=== PATIENT | female | born 1970 | race African-American/Black ===

== ENCOUNTER 2018-06-04 00:06 | Inpatient (IN) ==
[2018-06-04 02:16] LABS: Calcium 8.9 mg/dL (8.5-10.1); Carbon Dioxide 29.9 meq/L (21.0-32.0); Potassium 3.8 meq/L (3.5-5.1)
[2018-06-04 02:20] LABS: Troponin I 0.03 ng/mL (0.02-0.05)
[2018-06-04] MEDS ORDERED: hydrALAZINE HCl Inj 20 MG/ML Vial IV.PUSH ONE (03:05)
--- NOTE | 2018-06-04 03:11 | ED ---
HPI General Chief complaint: Medical Clearance Stated complaint: Blood Pressure Time Seen by Provider: 06/04/18 00:49 Source: patient Mode of arrival: ambulatory Limitations: no limitations History of Present Illness HPI narrative: Is a 47-year-old woman who presents to the emergency department complaining of headache and elevated blood pressure. She reports a history of hypertension in the past. She felt well recently. Says over the past day or so she started getting more headache, neck pain, and feeling like her blood pressure is elevated. She took it at home and it was 200s over 100s. She takes lisinopril and carvedilol. She has been taking it regularly. She has not run out of any of her medications. She has had a stroke in the past. She reports one time they told her kidney function was a little bit off but she had lab work done just recently and was told by her doctor that it was all normal. No other complaints. Related Data Home Medications Medication Instructions Recorded Confirmed atorvastatin 20 mg PO DAILY 06/04/18 06/04/18 carvedilol [Coreg] 12.5 mg PO BID 06/04/18 06/04/18 lisinopril 20 mg PO DAILY 06/04/18 06/04/18 Allergies Allergy/AdvReac Type Severity Reaction Status Date / Time No Known Allergies Allergy Mild Uncoded 11/22/07 23:40 Review of Systems ROS: all other systems reviewed are negative [facility] Medical History Medical History Diabetes (Acute) HTN (hypertension) (Acute) History of hysterectomy (Acute) History of stroke (Acute) Hx of heart failure (Acute) Surgical History Surgical History Previous section (Acute) Social History Social History Second Hand Smoke Exposure: No Smoking Status: Never smoker How Often Do You Have a Drink Containing Alcohol: Never Recent Travel in [facility] [[email or web address]] within the Last 8 Weeks: No Recent Out of Country Travel within the Last 8 Weeks: No Immunization History Tetanus Immunization: <5 Years Tetanus Immunization Year if Known: 2016 Hx Influenza Vaccine This Season: No Exam Narrative Exam Narrative: GENERAL: Well-appearing 47-year-old woman, no acute distress. SKIN: Focused skin assessment warm/dry. HEAD: Atraumatic. Normocephalic. EYES: Pupils equal and round. No scleral icterus. No injection or drainage. ENT: No nasal bleeding or discharge. Mucous membranes pink and moist. NECK: Trachea midline. No JVD. CARDIOVASCULAR: Regular rate and rhythm. No murmur appreciated. RESPIRATORY: No accessory muscle use. Clear to auscultation. Breath sounds equal bilaterally. GASTROINTESTINAL: Abdomen soft, non-tender, nondistended. Hepatic and splenic margins not palpable. MUSCULOSKELETAL: No obvious deformities. No clubbing. No cyanosis. No edema. NEUROLOGICAL: Awake and alert. No obvious cranial nerve deficits. Motor grossly within normal limits. Normal speech. PSYCHIATRIC: Appropriate mood and affect; insight and judgment normal. Course Initial Documented Vital Signs Temperature 98.3 F 06/04/18 00:25 Pulse Rate 67 06/04/18 00:25 Respiratory Rate 16 06/04/18 00:25 Blood Pressure 239/116 H 06/04/18 00:25 Pulse Oximetry 97 06/04/18 00:25 Last Documented Vital Signs Temperature 98.3 F 06/04/18 00:25 Pulse Rate 54 L 06/04/18 02:55 Respiratory Rate 16 06/04/18 02:55 Blood Pressure 198/102 H 06/04/18 02:55 Pulse Oximetry 99 06/04/18 02:55 Medical Decision Making MDM Narrative Medical decision making narrative: Is a 47-year-old woman who presents to the emergency department with elevated blood pressure. She has headache and neck pain which happens when her blood pressure little bit elevated. Has never been so elevated that she had to come see a doctor like this before. She has had a stroke in the past. States her blood pressure normally runs in the 120s or so. She takes her medicine regularly. She was feeling fine before today. Etiology is unclear. Labs do show kidney injury. No old for comparison. Is presumed acute. Despite 2 doses of enalapril, her blood pressure remains elevated 200/100. We will give her a dose of hydralazine, hypertensive urgency. Medical Screen Exam Complete: Yes Emergency Medical Condition: Yes Lab Data Result diagrams: 06/04/18 01:15 Lab Results 06/04/18 Range/Units 01:15 Sodium 142 (136-145) meq/L Potassium 3.8 (3.5-5.1) meq/L Chloride 104 (98-107) meq/L Carbon Dioxide 29.9 (21.0-32.0) meq/L Anion Gap 8 (5-15) meq/L BUN 44 H (7-18) mg/dL Creatinine 2.84 H (0.50-1.00) mg/dL Estimated GFR 21 L (>89) mL/min Random Glucose 142 H (74-106) mg/dL Calcium 8.9 (8.5-10.1) mg/dL Troponin I 0.03 (0.02-0.05) ng/mL Discharge Plan Discharge Disposition Patient Disposition: 30 Still Patient Physicians Team ED Provider: John Lee Primary Care Provider: UNKNOWN, Rxs /Orders / Referrals /Forms Prescriptions: No Action carvedilol [Coreg] 6.25 mg Tablet 12.5 mg PO BID RF: 0 atorvastatin 10 mg Tablet 20 mg PO DAILY RF: 0 lisinopril 20 mg Tablet 20 mg PO DAILY RF: 0 Status ED Status: With Doctor
[2018-06-04 03:37] LABS: Baso % (Auto) 0.7 % (0.0-2.0); Eos # (Auto) 0.1 th/mm3 (0.0-0.4); Eos % (Auto) 2.1 % (0.0-4.0); Hematocrit 40.2 % (35.0-46.0); Hemoglobin 13.1 gm/dL (11.6-15.3); Lymph # (Auto) 2.9 th/mm3 (1.0-4.8); Lymph % (Auto) 44.6 % (9.0-44.0); Mean Corpuscular HGB Conc 32.7 % (32.0-36.0); Mean Corpuscular Hemoglobin 28.9 pg (27.0-34.0); Mean Corpuscular Volume 88.5 fL (80.0-100.0); Mean Platelet Volume 11.9 fL (7.0-11.0); Mono # (Auto) 0.4 th/mm3 (0.0-0.9); Mono % (Auto) 6.7 % (0.0-8.0); Neut % (Auto) 45.9 % (16.0-70.0); Platelet Count 139 th/mm3 (150-450); Red Blood Count 4.54 mil/mm3 (4.00-5.30); White Blood Count 6.6 th/mm3 (4.0-11.0)
[2018-06-04] MEDS ORDERED: hydrALAZINE 25 MG Tablet PO ONE (03:52)
[2018-06-04] MEDS ORDERED: Bisacodyl 10 MG Supp RECTAL PRN (03:53)
--- NOTE | 2018-06-04 04:06 | P.HP ---
History of Present Illness Service: [facility] Primary Care Physician: UNKNOWN History of Present Illness: 47-year-old female with a past medical history significant for previous CVA, hypertension, hyperlipidemia and CHF presents to the emergency department for evaluation of elevated blood pressure. The patient reports she was taking her blood pressure at home when she noticed it was elevated. Her highest reading was 218/104. She endorses associated headache and blurry vision. She denies any chest pain or shortness of breath. She has residual right-sided weakness from her previous CVA that is at baseline. No abdominal pain. No nausea/ vomiting/diarrhea. No fever/chills. Review of Systems All other systems reviewed negative except as stated in HPI [facility] - History History Provided By: Patient - Medical History Medical History: Medical History (Last Reviewed 06/04/18 @ 03:10 by John Lee MD) Diabetes HTN (hypertension) History of hysterectomy History of stroke Hx of heart failure - Surgical History Surgical History: Surgical History (Last Reviewed 06/04/18 @ 03:10 by John Lee MD) Previous section - Family History Family History: Family History (Last Updated 06/04/18 @ 03:57 by Sheila Valerio MD) Other Coronary artery disease Diabetes mellitus - Tobacco History Second Hand Smoke Exposure: No Smoking Status: Never smoker - Alcohol History How Often Do You Have a Drink Containing Alcohol: Never - Travel History Recent Travel in the [place] Within the Last 8 Weeks: No Recent Travel Out of the Country Within the Last 8 Weeks: No - Immunization History Tetanus Immunization: <5 Years Tetanus Immunization Year if Known: 2016 Hx Influenza Vaccine This Season: No Medications and Allergies Allergies Allergy/AdvReac Type Severity Reaction Status Date / Time No Known Allergies Allergy Mild Uncoded 11/22/07 23:40 Home Medications Medication Instructions Recorded Confirmed Type atorvastatin 20 mg PO DAILY 06/04/18 06/04/18 History carvedilol [Coreg] 12.5 mg PO BID 06/04/18 06/04/18 History lisinopril 20 mg PO DAILY 06/04/18 06/04/18 History Exam Vital signs: Vital Signs 06/04/18 00:25 06/04/18 00:43 06/04/18 02:12 Temperature 98.3 F Pulse Rate 67 68 56 L Respiratory Rate 16 14 16 Blood Pressure 239/116 H 244/121 H 211/113 H Pulse Oximetry 97 97 98 06/04/18 02:55 Temperature Pulse Rate 54 L Respiratory Rate 16 Blood Pressure 198/102 H Pulse Oximetry 99 Intake & Output 06/03/18 06/03/18 06/04/18 06:59 18:59 06:59 Weight 63.503 kg Narrative: Gen.: No acute distress Head: Normocephalic. Atraumatic. EENT: Pupils equal round and reactive to light. Nose without drainage. Airway intact. Throat without injection. Cardiovascular: Regular rate and rhythm. No murmurs, rubs or gallops. Respiratory: Lungs clear to auscultation bilaterally. No wheezes or rhonchi. Abdomen: Soft, nontender, nondistended. No peritoneal signs. Musculoskeletal: No gross deformities. No edema. Skin: No obvious rashes or erythema. Neuro: Cranial nerves II through XII grossly intact. Residual right-sided weakness that is at baseline. Results - Labs CBC & Chem 7: 06/04/18 01:15 06/04/18 01:15 Labs: Laboratory Results - last 24 hr 06/04/18 06/04/18 01:15 01:15 WBC 6.6 RBC 4.54 Hgb 13.1 Hct 40.2 MCV 88.5 MCH 28.9 MCHC 32.7 RDW 15.0 Plt Count 139 L MPV 11.9 H Neut % (Auto) 45.9 Lymph % (Auto) 44.6 H [place] % (Auto) 6.7 Eos % (Auto) 2.1 Baso % (Auto) 0.7 Neut # (Auto) 3.0 Lymph # (Auto) 2.9 [place] # (Auto) 0.4 Eos # (Auto) 0.1 Baso # (Auto) 0.0 WBC Differential . Differential Comment Auto diff final Sodium 142 Potassium 3.8 Chloride 104 Carbon Dioxide 29.9 Anion Gap 8 BUN 44 H Creatinine 2.84 H Estimated GFR 21 L Random Glucose 142 H Calcium 8.9 Troponin I 0.03 Caprini VTE Risk Assessment Caprini VTE Risk Assessment: Moderate/High Risk (score >= 2) Caprini Risk Assessment Model: Point Value = 1 Point Value = 2 Point Value = 3 Point Value = 5 Age 41-60 Minor surgery BMI > 25 kg/m2 Swollen legs Varicose veins or History of unexplained or recurrent spontaneous Oral contraceptives or hormone replacement Sepsis (< 1 month) Serious lung disease, including pneumonia (< 1 month) Abnormal pulmonary function Acute myocardial infarction Congestive heart failure (< 1 month) History of inflammatory bowel disease Medical patient at bed rest Age 61-74 Arthroscopic surgery Major open surgery (> 45 min) Laparoscopic surgery (> 45 min) Malignancy Confined to bed (> 72 hours) Immobilizing plaster cast Central venous access Age >= 75 History of VTE Family history of VTE Factor V Leiden Prothrombin [id number] Lupus anticoagulant Anticardiolipin antibodies Elevated serum homocysteine Heparin-induced thrombocytopenia Other congenital or acquired thrombophilia Stroke (< 1 month) Elective arthroplasty Hip, pelvis, or leg fracture Acute spinal cord injury (< 1 month) Prophylaxis Regimen: Total Risk Factor Score Risk Level Prophylaxis Regimen 0-1 Low Early ambulation 2 Moderate Order ONE of the following: *Sequential Compression Device (SCD) *Heparin 5000 units SQ BID 3-4 Higher Order ONE of the following medications: *Heparin 5000 units SQ TID *Enoxaparin/Lovenox 40 mg SQ daily (WT < 150 kg, CrCl > 30 mL/min) *Enoxaparin/Lovenox 30 mg SQ daily (WT < 150 kg, CrCl > 10-29 mL/min) *Enoxaparin/Lovenox 30 mg SQ BID (WT < 150 kg, CrCl > 30 mL/min) AND/OR *Sequential Compression Device (SCD) 5 or more Highest Order ONE of the following medications: *Heparin 5000 units SQ TID (Preferred with Epidurals) *Enoxaparin/Lovenox 40 mg SQ daily (WT < 150 kg, CrCl > 30 mL/min) *Enoxaparin/Lovenox 30 mg SQ daily (WT < 150 kg, CrCl > 10-29 mL/min) *Enoxaparin/Lovenox 30 mg SQ BID (WT < 150 kg, CrCl > 30 mL/min) AND *Sequential Compression Device (SCD) Assessment and Plan - Plan Assessment/plan: 1. Hypertensive crisis Patient's blood pressure 239/116 on arrival to the emergency department Bradycardic in the 50s Status post enalapril 2 in the emergency department Hydralazine Holding home medications secondary to bradycardia 2. Acute kidney injury BUN/creatinine 44/2.84, baseline unknown IV fluid hydration Monitor renal function 3. Bradycardia Telemetry Holding home antihypertensives 4. History of CVA Patient at baseline Monitor 5. Hyperlipidemia Continue home statin 6. CHF Gentle IV fluid hydration Monitor for volume overload FEN Heart healthy diet Electrolytes: Monitor and replete as needed NS at 70 cc/hour
[2018-06-04] MEDS: Sod Chloride 0.9% Inj 1,000 ML IV.CONT SCH ×3 (06:27→18:43)
[2018-06-04] MEDS: Heparin - SQ 10,000 UNITS/ML Vial SQ SCH ×2 (06:28→18:41)
[2018-06-04] MEDS: Senna/Docusate Sodium 8.6/50 MG Tablet PO SCH ×2 (08:26→21:22)
[2018-06-04] MEDS: Carvedilol 6.25 MG Tablet PO SCH ×2 (08:26→21:22)
[2018-06-04] MEDS: Lisinopril 20 MG Tablet PO SCH (08:40)
[2018-06-04] MEDS ORDERED: hydrALAZINE 10 MG Tablet PO SCH (09:00)
--- NOTE | 2018-06-04 09:45 | ECG ---
Date Performed: 06/04/2018 Time Performed: 00:37:26 PTAGE: 47 years EKG: SINUS BRADYCARDIA WITH OCCASIONAL VENTRICULAR PREMATURE COMPLEXES POSSIBLE LEFT ATRIAL ENLA RGEMENT MARKED LEFT AXIS DEVIATION LEFT VENTRICULAR HYPERTROPHY AND ST-T CHANGE ABNORMAL ECG PREVIOUS TRACING : 11/24/2007 05.30 DOCTOR: John Holt Interpretating Date/Time 06/04/2018 09:43:53
[2018-06-04] MEDS ORDERED: Dextrose 50% in Water 50 ML Vial IV.PUSH PRN (11:10)
[2018-06-04] MEDS: Insulin NovoLOG Aspart Correctional Sugar Inj SQ SCH ×3 (12:22→21:22)
[2018-06-04 12:52] LABS: Carbon Dioxide 25.8 meq/L (21.0-32.0); Potassium 3.7 meq/L (3.5-5.1)
[2018-06-04] MEDS: hydrALAZINE 10 MG Tablet PO SCH ×2 (12:55→18:41)
--- NOTE | 2018-06-04 13:38 | P.PN ---
Subjective Interval history: Follow up for elevated BP: examined in the ED, bp still elevated 180s. C/O mild headache. History of CVA in March, was in rehab for 2 months. Indicates that blood pressure has been relatively well controlled until yesterday. No longer takes oral hypoglycemics as she controls her diabetes with diet. Denies any chest pain, shortness of breath. Does have residual weakness to the right hand and leg from previous stroke. Uses a cane for ambulation. Physical Exam Vital signs: Vital Signs 06/04/18 00:25 06/04/18 00:43 06/04/18 02:12 Temperature 98.3 F Pulse Rate 67 68 56 L Respiratory Rate 16 14 16 Blood Pressure 239/116 H 244/121 H 211/113 H Pulse Oximetry 97 97 98 06/04/18 02:55 06/04/18 05:00 06/04/18 06:00 Temperature Pulse Rate 54 L 57 L 60 Respiratory Rate 16 15 16 Blood Pressure 198/102 H 217/117 H 201/91 H Pulse Oximetry 99 99 06/04/18 07:17 06/04/18 08:20 06/04/18 09:30 Temperature Pulse Rate 67 74 71 Respiratory Rate 12 16 16 Blood Pressure 180/99 H 205/103 H 189/96 H Pulse Oximetry 100 06/04/18 11:26 06/04/18 12:00 Temperature 97.7 F Pulse Rate 67 64 Respiratory Rate 16 18 Blood Pressure 183/116 H 202/111 H Pulse Oximetry 99 Intake & Output 06/03/18 06/04/18 06/04/18 18:59 06:59 18:59 Intake Total 1000 / 1000 Balance 1000 / 1000 Weight 63.503 kg Intake: IV 1000 / 1000 NS Inj 1,000 ML @ 70 mls/hr IV. 1000 / 1000 CONT .[id number] [facility] Rx#:[id number] Narrative: GENERAL: Well-nourished, well-developed patient in no apparent distress. SKIN: Warm and dry. HEAD: Atraumatic. Normocephalic. EYES: Pupils equal and round. No scleral icterus. No injection or drainage. ENT: No nasal bleeding or discharge. Mucous membranes pink and moist. NECK: Trachea midline. No JVD. CARDIOVASCULAR: Regular rate and rhythm. RESPIRATORY: No accessory muscle use. Clear to auscultation. Breath sounds equal bilaterally. GASTROINTESTINAL: Abdomen soft, non-tender, nondistended. Hepatic and splenic margins not palpable. MUSCULOSKELETAL: Extremities without clubbing, cyanosis, or edema. No obvious deformities. NEUROLOGICAL: Awake and alert. Right hand with slight contracture from previous CVA, strength 3-4/5. RLE 4/5. PSYCHIATRIC: Appropriate mood and affect; insight and judgment normal. Results - Labs CBC & Chem 7: 06/04/18 01:15 06/04/18 11:30 Laboratory Results - last 24 hr 06/04/18 06/04/18 06/04/18 01:15 01:15 11:30 WBC 6.6 RBC 4.54 Hgb 13.1 Hct 40.2 MCV 88.5 MCH 28.9 MCHC 32.7 RDW 15.0 Plt Count 139 L MPV 11.9 H Neut % (Auto) 45.9 Lymph % (Auto) 44.6 H [place] % (Auto) 6.7 Eos % (Auto) 2.1 Baso % (Auto) 0.7 Neut # (Auto) 3.0 Lymph # (Auto) 2.9 [place] # (Auto) 0.4 Eos # (Auto) 0.1 Baso # (Auto) 0.0 WBC Differential . Differential Comment Auto diff final Sodium 142 143 Potassium 3.8 3.7 Chloride 104 108 H Carbon Dioxide 29.9 25.8 Anion Gap 8 9 BUN 44 H 40 H Creatinine 2.84 H 2.52 H Estimated GFR 21 L 25 L POC Glucose Random Glucose 142 H 143 H Calcium 8.9 9.0 Troponin I 0.03 06/04/18 12:21 WBC RBC Hgb Hct MCV MCH MCHC RDW Plt Count MPV Neut % (Auto) Lymph % (Auto) [place] % (Auto) Eos % (Auto) Baso % (Auto) Neut # (Auto) Lymph # (Auto) [place] # (Auto) Eos # (Auto) Baso # (Auto) WBC Differential Differential Comment Sodium Potassium Chloride Carbon Dioxide Anion Gap BUN Creatinine Estimated GFR POC Glucose 138 H Random Glucose Calcium Troponin I Assessment and Plan - Assessment (1) Hypertensive crisis Code(s): I16.9 - Hypertensive crisis, unspecified Status: Acute (2) Diabetes 1.5, managed as type 2 Code(s): E10.9 - Type 1 diabetes mellitus without complications Status: Chronic (3) History of CVA with residual deficit Code(s): I69.30 - Unspecified sequelae of cerebral infarction Status: Chronic - Plan Assessment/plan: 47-year-old female with a past medical history significant for previous CVA, hypertension, hyperlipidemia and CHF presents to the emergency department for evaluation of elevated blood pressure. The patient reports she was taking her blood pressure at home when she noticed it was elevated. Her highest reading was 218/104. She endorses associated headache and blurry vision. Hypertensive crisis Patient's blood pressure 239/116 on arrival to the emergency department Bradycardic in the 50s Status post enalapril 2 in the emergency department -inc Hydralazine to 20 mg PO TID -Resume Lisinopril at 10 mg po daily, has renal insuf. unknown baseline -Resume Coreg, HR better 70s -Continue with Vasotec PRN Acute kidney injury BUN/creatinine 44/2.84, baseline unknown -IV fluid hydration -Monitor renal function -Avoid nephrotoxic agents Repeat BMP today Bradycardia-improved, heart rate 70s. -Continuous cardiac telemetry telemetry -Resume Coreg with hold parameters History of CVA with residual right-sided weakness Patient at baseline -Monitor and control blood pressure Continue with statin Hyperlipidemia -Continue home statin Chronic CHF -Gentle IV fluid hydration -Monitor for volume overload Diet-controlled diabetes Accu-Cheks before meals and at bedtime with insulin therapy as needed Heparin for DVT prophylaxis Discussed with RN, patient. Repeat labs in the morning
[2018-06-05] MEDS: Heparin - SQ 10,000 UNITS/ML Vial SQ SCH ×2 (06:23→18:09)
[2018-06-05 08:07] LABS: Baso % (Auto) 0.6 % (0.0-2.0); Eos # (Auto) 0.1 th/mm3 (0.0-0.4); Eos % (Auto) 2.1 % (0.0-4.0); Hematocrit 38.7 % (35.0-46.0); Hemoglobin 12.7 gm/dL (11.6-15.3); Lymph # (Auto) 2.6 th/mm3 (1.0-4.8); Lymph % (Auto) 41.1 % (9.0-44.0); Mean Corpuscular HGB Conc 32.8 % (32.0-36.0); Mean Corpuscular Hemoglobin 28.9 pg (27.0-34.0); Mean Platelet Volume 12.1 fL (7.0-11.0); Mono # (Auto) 0.4 th/mm3 (0.0-0.9); Mono % (Auto) 6.6 % (0.0-8.0); Neut # (Auto) 3.1 th/mm3 (1.8-7.7); Neut % (Auto) 49.6 % (16.0-70.0); Platelet Count 140 th/mm3 (150-450); Red Cell Distribution Width 15.1 % (11.6-17.2); White Blood Count 6.2 th/mm3 (4.0-11.0)
[2018-06-05 08:31] LABS: Calcium 9.1 mg/dL (8.5-10.1); Carbon Dioxide 22.8 meq/L (21.0-32.0); Potassium 3.9 meq/L (3.5-5.1)
[2018-06-05] MEDS: Insulin NovoLOG Aspart Correctional Sugar Inj SQ SCH ×4 (09:00→21:36)
--- NOTE | 2018-06-05 09:24 | P.PNIM ---
Subjective Interval history: f/u; hypertensive urgency in no acute distress. denies chest pain, sob or dizziness. Physical Exam Vital signs: Vital Signs 06/04/18 09:30 06/04/18 11:26 06/04/18 12:00 Temperature 97.7 F Pulse Rate 71 67 64 Respiratory Rate 16 16 18 Blood Pressure 189/96 H 183/116 H 202/111 H Pulse Oximetry 99 06/04/18 14:05 06/04/18 16:00 06/04/18 17:44 Temperature 97.7 F Pulse Rate 74 67 Respiratory Rate 18 Blood Pressure 164/88 H 187/106 H Pulse Oximetry 99 06/04/18 18:40 06/04/18 20:00 06/04/18 22:00 Temperature 98.1 F Pulse Rate 67 96 H Respiratory Rate 18 Blood Pressure 162/124 H 188/105 H 242/122 H Pulse Oximetry 98 97 06/05/18 01:19 06/05/18 02:36 06/05/18 04:00 Temperature 97.8 F Pulse Rate 90 83 78 Respiratory Rate 18 Blood Pressure 177/95 H 157/89 H 143/85 H Pulse Oximetry 97 98 98 Intake & Output 06/04/18 06/05/18 06/05/18 18:59 06:59 18:59 Intake Total 1000 / 1000 Balance 1000 / 1000 Weight 66.7 kg Intake: IV 1000 / 1000 NS Inj 1,000 ML @ 70 mls/hr IV. 1000 / 1000 CONT .[id number] [facility] Rx#:[id number] Other: # Voids 2 # Bowel Movements 1 - Constitutional no acute distress - Routine Respiratory Exam Present: CTA bilaterally - Routine Cardiovascular Exam Present: RRR - Routine Abdominal Exam Present: soft - Routine Extremities Exam Comments: no pedal edema. - Routine Neurological Exam Present: alert, oriented X3 Results - Labs CBC & Chem 7: 06/05/18 06:31 06/05/18 06:31 Laboratory Results - last 24 hr 06/04/18 06/04/18 06/04/18 11:30 12:21 16:48 WBC RBC Hgb Hct MCV MCH MCHC RDW Plt Count MPV Neut % (Auto) Lymph % (Auto) [place] % (Auto) Eos % (Auto) Baso % (Auto) Neut # (Auto) Lymph # (Auto) [place] # (Auto) Eos # (Auto) Baso # (Auto) WBC Differential Differential Comment Sodium 143 Potassium 3.7 Chloride 108 H Carbon Dioxide 25.8 Anion Gap 9 BUN 40 H Creatinine 2.52 H Estimated GFR 25 L POC Glucose 138 H 133 H Random Glucose 143 H Calcium 9.0 06/04/18 06/05/18 06/05/18 20:53 06:31 06:31 WBC 6.2 RBC 4.40 Hgb 12.7 Hct 38.7 MCV 88.0 MCH 28.9 MCHC 32.8 RDW 15.1 Plt Count 140 L MPV 12.1 H Neut % (Auto) 49.6 Lymph % (Auto) 41.1 [place] % (Auto) 6.6 Eos % (Auto) 2.1 Baso % (Auto) 0.6 Neut # (Auto) 3.1 Lymph # (Auto) 2.6 [place] # (Auto) 0.4 Eos # (Auto) 0.1 Baso # (Auto) 0.0 WBC Differential . Differential Comment Auto diff final Sodium 143 Potassium 3.9 Chloride 110 H Carbon Dioxide 22.8 Anion Gap 10 BUN 36 H Creatinine 2.59 H Estimated GFR 24 L POC Glucose 122 H Random Glucose 118 H Calcium 9.1 Assessment and Plan - Assessment (1) Hypertensive crisis Code(s): I16.9 - Hypertensive crisis, unspecified Status: Acute (2) Diabetes 1.5, managed as type 2 Code(s): E10.9 - Type 1 diabetes mellitus without complications Status: Chronic (3) History of CVA with residual deficit Code(s): I69.30 - Unspecified sequelae of cerebral infarction Status: Chronic - Plan Hypertensive crisis Patient's blood pressure 239/116 on arrival to the emergency department Bradycardic in the 50s Status post enalapril 2 in the emergency department -continue Hydralazine to 20 mg PO TID -Resumed Lisinopril at 10 mg po daily, has renal insuf. unknown baseline -Resumed Coreg, HR better 70s -Continue with Vasotec PRN renal insufficiency with unknown duration BUN/creatinine 44/2.84, baseline unknown -IV fluid hydration -Monitor renal function -Avoid nephrotoxic agents Bradycardia-improved, heart rate 70s. -Continuous cardiac telemetry telemetry -Resumed Coreg with hold parameters History of CVA with residual right-sided weakness Patient at baseline -Monitor and control blood pressure Continue with statin Hyperlipidemia -Continue home statin Chronic CHF -Gentle IV fluid hydration -Monitor for volume overload Diet-controlled diabetes Accu-Cheks before meals and at bedtime with insulin therapy as needed Heparin for DVT prophylaxis Discharge Planning: dc home tomorrow if BP stable.
[2018-06-05] MEDS: Carvedilol 6.25 MG Tablet PO SCH ×2 (09:53→21:24)
[2018-06-05] MEDS: Senna/Docusate Sodium 8.6/50 MG Tablet PO SCH ×2 (09:53→21:37)
[2018-06-05] MEDS: hydrALAZINE 10 MG Tablet PO SCH ×3 (09:53→18:09)
[2018-06-05] MEDS: Lisinopril 10 MG Tablet PO SCH (09:56)
[2018-06-05] MEDS: Sod Chloride 0.9% Inj 1,000 ML IV.CONT SCH (09:57)
[2018-06-05] MEDS: Lisinopril 20 MG Tablet PO SCH (18:05)
[2018-06-05] MEDS: Acetaminophen 325 MG Tablet PO PRN (21:24)
[2018-06-06] MEDS: Sod Chloride 0.9% Inj 1,000 ML IV.CONT SCH ×2 (02:46→23:00)
[2018-06-06] MEDS: Heparin - SQ 10,000 UNITS/ML Vial SQ SCH ×2 (05:23→18:31)
[2018-06-06 07:19] LABS: Calcium 8.9 mg/dL (8.5-10.1); Carbon Dioxide 23.7 meq/L (21.0-32.0)
[2018-06-06] MEDS: Insulin NovoLOG Aspart Correctional Sugar Inj SQ SCH ×4 (08:53→21:16)
[2018-06-06] MEDS: Senna/Docusate Sodium 8.6/50 MG Tablet PO SCH ×2 (08:55→21:16)
[2018-06-06] MEDS: Carvedilol 6.25 MG Tablet PO SCH ×2 (08:55→21:15)
[2018-06-06] MEDS: Lisinopril 20 MG Tablet PO SCH (08:55)
[2018-06-06] MEDS: hydrALAZINE 10 MG Tablet PO SCH ×3 (08:55→18:29)
[2018-06-06] MEDS: Lisinopril 10 MG Tablet PO SCH (08:55)
--- NOTE | 2018-06-06 09:00 | P.PNIM ---
Subjective Interval history: f/u; hypertensive urgency in no acute distress. denies chest pain, sob or dizziness. BP trend noted. d/w the RN. Physical Exam Vital signs: Vital Signs 06/05/18 12:00 06/05/18 16:00 06/05/18 20:00 Temperature 97.7 F 97.5 F L 97.9 F Pulse Rate 68 71 72 Respiratory Rate 20 20 20 Blood Pressure 122/69 138/74 157/81 H Pulse Oximetry 98 98 98 06/06/18 00:00 06/06/18 04:00 Temperature 97.9 F 97.9 F Pulse Rate 65 71 Respiratory Rate 20 20 Blood Pressure 162/86 H 153/83 H Pulse Oximetry 98 96 Intake & Output 06/05/18 06/06/18 06/06/18 18:59 06:59 18:59 Intake Total 1000 / 1000 Balance 1000 / 1000 Intake: IV 1000 / 1000 NS Inj 1,000 ML @ 30 mls/hr IV. 1000 / 1000 CONT .Q24H [facility] Rx#:[id number] Other: Date of Last Bowel Movement 06/04/18 - Constitutional no acute distress - Routine Respiratory Exam Present: CTA bilaterally - Routine Cardiovascular Exam Present: RRR - Routine Abdominal Exam Present: soft - Routine Extremities Exam Comments: no pedal edema. - Routine Neurological Exam Present: alert, oriented X3 Results - Labs CBC & Chem 7: 06/05/18 06:31 06/06/18 06:34 Laboratory Results - last 24 hr 06/05/18 06/05/18 06/05/18 09:28 13:10 18:11 Sodium Potassium Chloride Carbon Dioxide Anion Gap BUN Creatinine Estimated GFR POC Glucose 131 H 121 H 88 Random Glucose Calcium 06/05/18 06/06/18 06/06/18 21:29 06:34 08:06 Sodium 142 Potassium 4.0 Chloride 111 H Carbon Dioxide 23.7 Anion Gap 7 BUN 42 H Creatinine 2.59 H Estimated GFR 24 L POC Glucose 130 H 116 H Random Glucose 105 Calcium 8.9 Assessment and Plan - Assessment (1) Hypertensive crisis Code(s): I16.9 - Hypertensive crisis, unspecified Status: Acute (2) Diabetes 1.5, managed as type 2 Code(s): E10.9 - Type 1 diabetes mellitus without complications Status: Chronic (3) History of CVA with residual deficit Code(s): I69.30 - Unspecified sequelae of cerebral infarction Status: Chronic - Plan Hypertensive crisis Patient's blood pressure 239/116 on arrival to the emergency department Bradycardic in the 50s Status post enalapril 2 in the emergency department -continue Hydralazine to 20 mg PO TID -Resumed Lisinopril at 20 mg po daily, has renal insuf. unknown baseline -Resumed Coreg, HR better 70s -Continue with Vasotec PRN renal insufficiency with unknown duration BUN/creatinine 44/2.84, baseline unknown -renal function stable -f/u as outpatient. Bradycardia-improved, heart rate 70s. -Continuous cardiac telemetry telemetry -Resumed Coreg with hold parameters History of CVA with residual right-sided weakness Patient at baseline -Monitor and control blood pressure Continue with statin Hyperlipidemia -Continue home statin Chronic CHF -Gentle IV fluid hydration -Monitor for volume overload Diet-controlled diabetes Accu-Cheks before meals and at bedtime with insulin therapy as needed Heparin for DVT prophylaxis Discharge Planning: dc home this afternoon if BP stable. advised to monitor her BP at home and have a close f/u with her pcp. see med list. d/w the patient and RN.
--- NOTE | 2018-06-06 09:03 | P.DS ---
Date of admission: 06/04/18 03:53 Primary care physician: UNKNOWN Brief History from admission: 47-year-old female with a past medical history significant for previous CVA, hypertension, hyperlipidemia and CHF presents to the emergency department for evaluation of elevated blood pressure. The patient reports she was taking her blood pressure at home when she noticed it was elevated. Her highest reading was 218/104. She endorses associated headache and blurry vision. She denies any chest pain or shortness of breath. She has residual right-sided weakness from her previous CVA that is at baseline. No abdominal pain. No nausea/ vomiting/diarrhea. No fever/chills. DS: Diagnosis - Discharge Diagnosis (1) Hypertensive crisis Status: Acute (2) Diabetes 1.5, managed as type 2 Status: Chronic (3) History of CVA with residual deficit Status: Chronic DS: Medications - Discharge Medications Prescriptions: hydralazine 20 mg PO TID 30 Days #180 tab DS: Summary Hospital Course: Hypertensive crisis Patient's blood pressure 239/116 on arrival to the emergency department Bradycardic in the 50s Status post enalapril 2 in the emergency department -continue Hydralazine to 20 mg PO TID -Resumed Lisinopril at 20 mg po daily, has renal insuf. unknown baseline -Resumed Coreg, HR better 70s -Continue with Vasotec PRN renal insufficiency with unknown duration BUN/creatinine 44/2.84, baseline unknown -renal function stable -f/u as outpatient. Bradycardia-improved, heart rate 70s. -Continuous cardiac telemetry telemetry -Resumed Coreg with hold parameters History of CVA with residual right-sided weakness Patient at baseline -Monitor and control blood pressure Continue with statin Hyperlipidemia -Continue home statin Chronic CHF -Gentle IV fluid hydration -Monitor for volume overload Diet-controlled diabetes Accu-Cheks before meals and at bedtime with insulin therapy as needed - Time Spent with Patient Total time spent providing and/or coordinating discharge services: Less than 30 minutes - Quality: VTE Deep Vein Thrombosis/Pulmonary Embolism Present on Admission: No Exam Vital signs: Vital Signs 06/05/18 12:00 06/05/18 16:00 06/05/18 20:00 Temperature 97.7 F 97.5 F L 97.9 F Pulse Rate 68 71 72 Respiratory Rate 20 20 20 Blood Pressure 122/69 138/74 157/81 H Pulse Oximetry 98 98 98 09/07/18 00:00 06/06/18 04:00 Temperature 97.9 F 97.9 F Pulse Rate 65 71 Respiratory Rate 20 20 Blood Pressure 162/86 H 153/83 H Pulse Oximetry 98 96 Intake & Output 06/05/18 06/06/18 06/06/18 18:59 06:59 18:59 Intake Total 1000 / 1000 Balance 1000 / 1000 Intake: IV 1000 / 1000 NS Inj 1,000 ML @ 30 mls/hr IV. 1000 / 1000 CONT .[facility] Rx#:[id number] Other: Date of Last Bowel Movement 06/04/18 Results Procedures completed during hospitalization: none. Labs on day of discharge: Labs from last 24 hours 06/06/18 06/06/18 06/05/18 08:06 06:34 21:29 Sodium 142 Potassium 4.0 Chloride 111 H Carbon Dioxide 23.7 Anion Gap 7 BUN 42 H Creatinine 2.59 H Estimated GFR 24 L POC Glucose 116 H 130 H Random Glucose 105 Calcium 8.9 06/05/18 06/05/18 06/05/18 18:11 13:10 09:28 Sodium Potassium Chloride Carbon Dioxide Anion Gap BUN Creatinine Estimated GFR POC Glucose 88 121 H 131 H Random Glucose Calcium Discharge Plan - Discharge Order Discharge Orders: Discharge Order (Routine); Ordered 06/06/18 Ordered By: Bonilla Schroeder - Physicians Team Primary Care Provider: UNKNOWN, Attending Provider: Bonilla Schroeder Other Providers: [employer]
[2018-06-07] MEDS: Heparin - SQ 10,000 UNITS/ML Vial SQ SCH (05:42)
[2018-06-07] MEDS: hydrALAZINE 10 MG Tablet PO SCH ×2 (09:19→12:29)
[2018-06-07] MEDS: Lisinopril 20 MG Tablet PO SCH (09:19)
[2018-06-07] MEDS: Senna/Docusate Sodium 8.6/50 MG Tablet PO SCH (09:19)
[2018-06-07] MEDS: Lisinopril 10 MG Tablet PO SCH ×2 (09:19→11:43)
[2018-06-07] MEDS: Carvedilol 6.25 MG Tablet PO SCH (09:20)
[2018-06-07] MEDS ORDERED: Lisinopril 20 MG Tablet PO SCH ×2 (09:56→09:59)
[2018-06-07] MEDS ORDERED: hydrALAZINE 25 MG Tablet PO ONE (09:59)
--- NOTE | 2018-06-07 10:00 | P.PNIM ---
Subjective Interval history: f/u; uncontrolled hypertension in no acute distress. no chest pain, sob, dizziness or headache. BP trend noted. Physical Exam Vital signs: Vital Signs 06/06/18 11:57 06/06/18 15:57 06/06/18 18:04 Temperature 97.6 F 98.1 F Pulse Rate 63 69 Respiratory Rate 20 20 Blood Pressure 155/89 H 185/96 H 156/78 H Pulse Oximetry 99 97 06/06/18 20:00 06/06/18 23:46 06/07/18 00:04 Temperature 97.6 F 98.3 F Pulse Rate 77 72 Respiratory Rate 18 14 Blood Pressure 172/90 H 180/98 H 180/98 H Pulse Oximetry 97 99 06/07/18 01:46 06/07/18 04:00 06/07/18 08:00 Temperature 98.2 F 97.7 F Pulse Rate 74 60 Respiratory Rate 16 18 Blood Pressure 150/98 H 160/98 H Pulse Oximetry 97 99 Intake & Output 06/06/18 06/07/18 06/07/18 18:59 06:59 18:59 Intake Total 480 / 480 1441 / 1441 Balance 480 / 480 1441 / 1441 Weight 66 kg Intake: Oral 480 / 480 1441 / 1441 Other: # Voids 3 2 - Constitutional no acute distress - Routine Respiratory Exam Present: CTA bilaterally - Routine Cardiovascular Exam Present: RRR - Routine Abdominal Exam Present: soft - Routine Extremities Exam Comments: no pedal edema. - Routine Neurological Exam Present: alert, oriented X3 Results - Labs CBC & Chem 7: 06/05/18 06:31 06/06/18 06:34 Laboratory Results - last 24 hr 06/06/18 06/06/18 06/06/18 12:53 16:34 20:09 POC Glucose 116 H 106 191 H 06/07/18 07:49 POC Glucose 128 H - Procedures none. Assessment and Plan - Assessment (1) Hypertensive crisis Code(s): I16.9 - Hypertensive crisis, unspecified Status: Acute (2) Diabetes 1.5, managed as type 2 Code(s): E10.9 - Type 1 diabetes mellitus without complications Status: Chronic (3) History of CVA with residual deficit Code(s): I69.30 - Unspecified sequelae of cerebral infarction Status: Chronic - Plan Hypertensive crisis Patient's blood pressure 239/116 on arrival to the emergency department Bradycardic in the 50s Status post enalapril 2 in the emergency department -continue Hydralazine ; increase to 50 mg tid -continue lisinopril 20 mg po daily. -Resumed Coreg, HR better 70s -Continue with Vasotec PRN renal insufficiency with unknown duration BUN/creatinine 44/2.84, baseline unknown -renal function stable -f/u as outpatient. Bradycardia-improved, heart rate 70s. -Continuous cardiac telemetry telemetry -Resumed Coreg with hold parameters History of CVA with residual right-sided weakness Patient at baseline -Monitor and control blood pressure Continue with statin Hyperlipidemia -Continue home statin Chronic CHF -Gentle IV fluid hydration -Monitor for volume overload Diet-controlled diabetes Accu-Cheks before meals and at bedtime with insulin therapy as needed Heparin for DVT prophylaxis Discharge Planning: dc home this afternoon if BP stable. advised to monitor her BP at home and have a close f/u with her pcp. see med list. d/w the patient and RN.
[2018-06-07] MEDS: Acetaminophen 325 MG Tablet PO PRN (11:50)
[2018-06-07 12:40] VITALS: RESP 14; TEMP 97.8; O2SAT 100
[2018-06-07 12:55] VITALS: BP 168/90
[2018-06-07] MEDS: Insulin NovoLOG Aspart Correctional Sugar Inj SQ SCH ×2 (14:27→19:00)
[2018-06-07 16:40] VITALS: PULSE 67
== END 2018-06-07 16:13 | disposition home or self-care (01) ==
LOC: NEDA 00:06 → NEPC 00:06 → NEDA 11:33 → N05 11:34
PROVIDERS: ADMIT Internal Medicine; ATTEND Internal Medicine